=== PATIENT | male | born 1955 | race Caucasian/White ===

== ENCOUNTER 2018-11-06 12:18 | Day surgery (SDC) | payer OTHER ==
[~2018-11-06] VITALS: Ht 175.3 cm; Wt 138.7 kg
[~2018-11-06 12:18] MED LIST: HCTZ; LISINOPRIL; SIMVASTATIN; [UNRECOGNIZED DRUG - OTHER]
[2018-11-06 15:01] VITALS: Ht 175.3 cm; Wt 138.7 kg
[2018-11-06 15:54] VITALS: BP 115/74; PULSE 60
--- NOTE | 2018-11-06 17:55 | PREAC ---
Date/Time of Note Date/Time of Note DATE: 11/06/18 TIME: 17:53 Anesthesia Eval and Record Evaluation Time Pre-Procedure Interview DATE: 11/06/18 TIME: 17:53 Age 63 Sex male NPO: 8 hrs Preoperative diagnosis Colon screening Planned procedure Colonoscopy Past Medical History Past Medical History: Includes Cardio: HTN, Dyslipidemia GI: Morbid obesity Surgery & Anesthesia Issues No known issue Meds Anticoagulation: No Beta Mando within 24 hr: No Reason Beta Mando not given: Pt. not on B-Mando Reported Medications [Lisinopril] No Conflict Check 11/06/18 [Simvastatin] No Conflict Check 11/06/18 [Hctz] No Conflict Check 11/06/18 [Meloxicam Prn] No Conflict Check 11/06/18 Meds reviewed: Yes Allergies Coded Allergies: No Known Allergy (Unverified , 11/06/18) Allergies Reviewed: Yes Labs/Studies Labs Reviewed: Reviewed by anesthesiologist test: N/A Studies: ECG Pre-procedure Exam Last vitals Vital Signs Date Temp Pulse Resp B/P (MAP) Pulse Ox O2 O2 Flow FiO2 Time Delivery Rate 11/06/18 97.8 60 115/74 96 Room Air 15:54 (88) Airway: Adequate mouth opening, Adequate thyromental dist Mallampati: Mallampati III Teeth: Normal Lung: Normal Heart: Normal ASA Physical Status ASA physical status: 3 Emergency: None Planned Anesthetic General/MAC: MAC Planned Pain Management Parenteral pain med Pre-operative Attestations Prior to commencing anesthesia and surgery, the patient was re-evaluated, there was verification of: *The patient's identity *The results of appropriate recent lab work and preoperative vital signs *The above evaluation not changing prior to induction *Anesthetic plan, risk benefits, alternative and complications discussed with patient/family; questions answered; patient/family understands, accepts and wishes to proceed. JESSICA ORTIZ MD Nov 06, 2018 17:55
--- NOTE | 2018-11-06 18:53 | PAC ---
Date/Time of Note Date/Time of Note DATE: 11/06/18 TIME: 18:53 Post-Anesthesia Notes Post-Anesthesia Note Last documented vital signs Vital Signs Date Temp Pulse Resp B/P (MAP) Pulse Ox O2 O2 Flow FiO2 Time Delivery Rate 11/06/18 97.8 60 115/74 96 Room Air 15:54 (88) Activity: WNL Respiratory function: WNL Cardiovascular function: WNL Mental status: Baseline Pain reasonably controlled: Yes Hydration appropriate: Yes Nausea/Vomiting absent: Yes Comments BP:112/67, P:78, Spo2:100%, T:98,8 JESSICA ORTIZ MD Nov 06, 2018 18:53
[2018-11-06 19:19] VITALS: BP 104/72; RESP 16
== END 2018-11-06 19:23 | disposition home or self-care (01) ==
LOC: GIL 12:18
PROVIDERS: ATTEND Internal Medicine Gastroenterology
DX: K92.1 Melena (principal); D12.0 Benign neoplasm of cecum; D12.4 Benign neoplasm of descending colon; D12.3 Benign neoplasm of transverse colon; D12.8 Benign neoplasm of rectum
CPT/HCPCS: 45380; 45385; 88305; Z7610